=== PATIENT | female | born 1950 | race Caucasian/White ===

== ENCOUNTER 2017-02-27 19:05 | Emergency (ER) | payer OTHER ==
--- NOTE | 2017-02-27 19:34 | EDM.PDOC ---
ED HPI GENERAL MEDICAL PROBLEM - General Chief Complaint: Upper Extremity Injury/Pain Stated Complaint: fall Time Seen by Provider: 02/27/17 19:16 Source of Information: Reports: Patient History Limitations: Reports: No Limitations - History of Present Illness INITIAL COMMENTS - FREE TEXT/NARRATIVE: Patient was visiting family and while saying goodbye, he fell and she did attempt to stop this. She complains of right sided anterior shoulder pain. She also complains of pain down her arm, as well as numbness to her hand. She has no other complaints. She did not hit her head, no headache, no LOC, no nausea or vomiting. Full range of other extremities. Onset: Today Onset Date: 02/27/17 Onset Time: 18:45 Duration: Constant Location: Reports: Lower Extremity, Right Severity: Moderate Worsens with: Reports: Movement Review of Systems - Review of Systems Review Of Systems: See Below Constitutional: Reports: No Symptoms Eyes: Reports: No Symptoms Ears: Reports: No Symptoms Nose: Reports: No Symptoms Mouth/Throat: Reports: No Symptoms Respiratory: Reports: No Symptoms Cardiovascular: Reports: No Symptoms GI/Abdominal: Reports: No Symptoms Genitourinary: Reports: No Symptoms Musculoskeletal: Reports: Arm Pain (right arm and shoulder pain and tingling) Skin: Reports: No Symptoms Neurological: Reports: No Symptoms Psychiatric: Reports: No Symptoms ED EXAM, GENERAL - Physical Exam Exam: See Below Exam Limited By: No Limitations General Appearance: Alert, WD/WN, Mild Distress Eye Exam: Bilateral Eye: EOMI, PERRL Head: Atraumatic, Normocephalic Neck: Normal Inspection, Supple Respiratory/Chest: No Respiratory Distress, Lungs Clear, Normal Breath Sounds, No Accessory Muscle Use, Chest Non-Tender Cardiovascular: Normal Peripheral Pulses, Regular Rate, Rhythm GI/Abdominal: Normal Bowel Sounds Back Exam: Normal Inspection, Full Range of Motion Extremities: Normal Inspection, Non-Tender, Limited Range 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) Neurological: Alert, Oriented, CN II-XII Intact, Normal Cognition, Normal Gait, Normal Reflexes, No Motor/Sensory Deficits Psychiatric: Normal Affect, Normal Mood Lymphatic: No Adenopathy Course - Orders/Labs/Meds Orders: Active Orders 24 hr Category Date Time Status Shoulder Comp Rt [CR] Stat Exams 02/27/17 19:27 Taken Meds: Medications Discontinued Medications Generic Name Dose Route Start Last Admin Trade Name Freq PRN Reason Stop Dose Admin Hydrocodone Bitart/Acetaminophen 1 tab 02/27/17 19:48 02/27/17 19:56 Arverne 325-10 Mg PO 02/27/17 19:49 1 tab ONETIME ONE Administration Ketorolac Tromethamine 30 mg 02/27/17 19:55 02/27/17 20:10 Toradol IM 02/27/17 19:56 30 mg ONETIME ONE Administration - Radiology Interpretation Free Text/Narrative:: Impacted right humeral head fracture. Discussed results with Dr. Mcwilliams of [facility]. Immobilization and pain meds are appropriate plan of care. - Re-Assessments/Exams Free Text/Narrative Re-Assessment/Exam: 02/27/17 19:35 right shoulder and scapular x-ray ordered 02/27/17 21:05 Impacted humeral neck fracture on x-ray. Arverne 10/325 given for pain control. Departure - Departure Time of Disposition: 21:55 Disposition: Home, Self-Care 01 Condition: Good Clinical Impression: Closed right humeral fracture - Discharge Information Instructions: Humerus Fracture Treated With Immobilization, [id number] Additional Instructions: Use pain meds on schedule as recommended. Keep shoulder immobilized. Pain may increase over the next 2-3 days. You should see someone in orthopedics when you return to [place], as surgery may be needed. You may also take ibuprofen or aleve for pain, inflammation, and swelling. Keep your arm elevated and use ice for 20-30 minutes at a time. Return to your nearest medical facility if you have any new severe pain that is uncontrolled by your pain medications. Please call with any questions or concerns. - Problem List Review Problem List Initiated/Reviewed/Updated: Yes - My Orders Last 24 Hours: My Active Orders 02/27/17 19:27 Shoulder Comp Rt [CR] Stat - Assessment/Plan Last 24 Hours: My Active Orders 02/27/17 19:27 Shoulder Comp Rt [CR] Stat Assessment:: Closed right impacted humeral neck fracture Plan: Use pain meds on schedule as recommended. Keep shoulder immobilized. Pain may increase over the next 2-3 days. You should see someone in orthopedics when you return to [place], as surgery may be needed. You may also take ibuprofen or aleve for pain, inflammation, and swelling. Keep your arm elevated and use ice for 20-30 minutes at a time. Return to your nearest medical facility if you have any new severe pain that is uncontrolled by your pain medications. Please call with any questions or concerns.
[2017-02-27] MEDS ORDERED: Acetaminophen/HYDROcodone 325-10 MG Tab PO ONE (19:48)
[2017-02-27] MEDS ORDERED: Ketorolac 30 MG/ML SDV IM ONE (19:55)
[2017-02-27] MEDS ORDERED: Take Home: Acetaminophen/HYDROcodone 325-10 MG, 5 Tab Pack PO ONE (21:05)
[2017-02-27 22:37] VITALS: BP 145/81
== END 2017-02-27 21:55 | disposition home or self-care (01) ==
LOC: VM.ED 19:05
DX: S42.291A Other displaced fracture of upper end of right humerus, initial encounter for closed fracture (principal); W19.XXXA Unspecified fall, initial encounter
CPT/HCPCS: 73030; 96372; 99283; A9270; J1885